=== PATIENT | male | born 1965 | race Hispanic/Latino ===

== ENCOUNTER 2020-10-31 08:02 | Day surgery (SDC) | payer BC, OTHER ==
[2020-10-31] MEDS ORDERED: ASPIRIN EC 325 MG TAB PO NR (09:24)
[2020-10-31 09:58] LABS: Basophils # (Auto) 0.1 K/mm3 (0.0-0.1); Basophils % (Auto) 1.3 % (0.0-1.8); Eosinophils # (Auto) 0.1 K/mm3 (0.0-0.4); Hematocrit 46.4 % (35.5-45.6); Hemoglobin 15.6 gm/dl (11.8-15.2); Lymphocytes % (Auto) 22.2 % (13.4-35.0); Mean Corpuscular HGB Conc 34 % (32-34); Mean Corpuscular Volume 91 fl (84-94); Monocytes # (Auto) 0.7 K/mm3 (0.0-0.8); Monocytes % (Auto) 7.5 % (0.0-7.3); Platelet Count 243 K/mm3 (140-440); Red Cell Distribution Width 13.6 % (13.2-15.2)
[2020-10-31] MEDS ORDERED: SODIUM CHLORIDE 0.9% 500 ML 500 ML IV SCH (10:00)
[2020-10-31 10:10] LABS: INR 0.91 (0.87-1.13)
[2020-10-31 10:13] LABS: BUN/Creatinine Ratio 13; Blood Urea Nitrogen 10 mg/dL (9-20); Calcium 8.8 mg/dL (8.4-10.2); Hemolysis Index 3
[2020-10-31] MEDS ORDERED: HEPARIN/NS 5000 UNIT/500ML 1,000 ML IR ONE (11:03)
[2020-10-31] MEDS: fentaNYL 100 MCG/2 ML INJ ONE ×2 (11:33→11:41)
[2020-10-31] MEDS: LIDOCAINE (2%) 20 MG/1 ML VIAL 20 ML MDV INFILTRATI ONE ×2 (11:34→11:45)
[2020-10-31] MEDS: HEPARIN 10,000 UNITS/10 ML VIAL ONE ×2 (11:34→11:46)
[2020-10-31] MEDS: VERAPAMIL 5 MG/2 ML INJ ONE ×2 (11:34→11:46)
[2020-10-31] MEDS: MIDAZOLAM 2 MG/2 ML INJ ONE ×2 (11:34→11:41)
[2020-10-31] MEDS ORDERED: HEPARIN/NS 5000 UNIT/500ML 500 ML IR ONE (11:45)
--- NOTE | 2020-10-31 12:37 | Cardiac Catherization Report ---
INDICATION FOR PROCEDURE: The patient is a 55-year-old gentleman with history of persistent chest pain and shortness of breath and edema of the upper and lower extremities. He is having intermittent chest pains continuously. He has a pharmacological stress testing performed on 06/26/2020, which showed no significant ischemia, abnormalities noted due to diaphragmatic attenuation. However, because of persistent chest pains, the patient is scheduled for cardiac catheterization for definitive diagnosis and treatment. The patient is aware of the procedure, potential complications and alternatives of therapy available. DESCRIPTION OF PROCEDURE: The patient was brought to the catheterization laboratory in a fasting condition. The patient was evaluated for moderate sedation and was felt to be appropriate candidate for moderate sedation. The patient received IV Versed and fentanyl starting at 11:41 a.m. Subsequently, monitored with pulse oximetry, EKG and hemodynamic monitoring. The patient was prepared in standard fashion. Sterile drapes were applied. Local anesthesia was given in the right wrist area. Right radial artery puncture was made using 21-gauge arterial puncture needle. A 5-Setswana slender sheath was introduced. The patient received intra-arterial verapamil and intravenous heparin because of radial approach. Using 6-Setswana multipurpose catheter, angiograms of the left ventricle done in MCLEAN projection using hand injection followed by angiograms of the left coronary artery and right coronary artery in multiple views. At the end of the procedure, catheter and sheath were removed. Good hemostasis was achieved with application of radial band. The patient was transferred to the room in stable condition. The patient was monitored throughout the procedure with pulse oximetry, hemodynamic monitoring and EKG monitoring. His moderate sedation started at 11:41 a.m. and monitoring ended at 11:52 a.m. Following findings were noted: HEMODYNAMICS: 1. Opening aortic pressure 120/78. Left ventricular pressure 120/21. No gradient across the aortic valve. Estimated ejection fraction 55%. 2. Left ventriculogram done in MCLEAN projection showed normal sized left ventricle with normal contractility. Mitral regurgitation could not be evaluated because of limited amount of dye. 3. Normal end-diastolic and end-systolic volumes noted. 4. Right coronary artery dominant vessel arises normally from right coronary cusp, angiographically smooth and normal. 5. Left coronary artery arises normally from left coronary cusp. Left main, LAD, which curves around the apex and its branches and circumflex artery and its branch are angiographically smooth and normal. FINAL IMPRESSION: 1. Normal sized left ventricle with normal contractility with mildly elevated end-diastolic pressure. 2. Normal coronary anatomy angiographically. 3. Right radial artery was used for access and good hemostasis was achieved with radial band. 4. The patient received moderate sedation without any complications. The patient will be continued on risk factor modification. Findings were explained to the patient and his on the phone. JOB# [id number] JAMIL/NTS
--- NOTE | 2020-10-31 13:02 | Short Stay Summary ---
Short Stay Documentation Date of service: 10/31/20 - History H&P: obtained from office - Allergies and Medications Current Medications: Allergies No Known Allergies Allergy (Verified 10/31/20 09:23) Home Medications Medication Instructions Recorded Confirmed Last Taken Type Budesonide/Formoterol Fumarate 10.2 gm IH BID 10/31/20 10/31/20 10/31/20 History [Symbicort 160-4.5 Mcg Inhaler] Mepolizumab [Nucala] 100 mg SQ Q4W 10/31/20 10/31/20 10/30/20 History Metoprolol Xl [Metoprolol 25 mg PO QDAY 10/31/20 10/31/20 10/31/20 History SUCCINATE ER TAB] Montelukast [Singulair] 10 mg PO QPM 10/31/20 10/31/20 10/30/20 History Active Medications Sodium Chloride (Nacl 0.9% 500 Ml) 500 mls @ 50 mls/hr IV DIRECT DEBORAH Stop: 10/31/20 19:59 Last Admin: 10/31/20 10:58 Dose: 50 mls/hr Documented by: - Brief post op/procedure progress note Date of procedure: 10/31/20 Pre-op diagnosis: Chest Pain Post-op diagnosis: other (Normal Coronaries) Procedure: [facility]- see dictated cath report Anesthesia: local Estimated blood loss: none Condition: stable - Disposition Condition at discharge: Good Disposition: [id number] TO HOME OR SELFCARE - Discharge Diagnoses (1) Normal coronary angiogram Status: Chronic Short Stay Discharge Plan Activity: advance as tolerated Diet: low fat, low cholesterol, low salt Wound: open to air, keep clean and dry, per your surgeon's advice Follow up with: JOSE MANUEL SANCHES MD [Primary Care Provider] - 7 Days HOA CLEMONS MD [Staff Physician] - 7 Days
[2020-10-31 15:04] VITALS: BP 128/74
== END 2020-10-31 15:45 | disposition home or self-care (01) ==
LOC: CATHLABREC 08:02
PROVIDERS: ATTEND Internal Medicine
DX: R07.89 Other chest pain (principal); R06.02 Shortness of breath; I20.8 Other forms of angina pectoris; J45.909 Unspecified asthma, uncomplicated; G47.30 Sleep apnea, unspecified; F41.9 Anxiety disorder, unspecified; Z98.890 Other specified postprocedural states; Z79.899 Other long term (current) drug therapy; Z90.49 Acquired absence of other specified parts of digestive tract
CPT/HCPCS: 80048; 85025; 85610; 93005; 93458; 99156; C1894; J1644; J2250; J3010; J7040; Q9967